=== PATIENT | female | born 1965 | race Caucasian/White ===

== ENCOUNTER 2016-04-07 15:28 | Emergency (ER) | payer BC, OTHER ==
[~2016-04-07] VITALS: Ht 167.6 cm; Wt 75.0 kg
[~2016-04-07 15:28] MED LIST: OXYC-360 PO; PEDI1CHW6 CHEW; ST J81CH PO; THYROSTIM PO; [UNRECOGNIZED DRUG - OTHER] PO; [UNRECOGNIZED DRUG - OTHER] PO
[2016-04-07 15:30] VITALS: BP 117/59; PULSE 78; RESP 20; TEMP 97.9; O2SAT 98
[2016-04-07] MEDS ORDERED: DILA100C PO (16:21)
--- NOTE | 2016-04-07 17:25 | RADRPT ---
EXAM DATE/TIME: 04/07/2016 17:00 [facility] COMPARISON: No previous studies available for comparison. INDICATIONS : Patient fell in the shower this morning. As she fell she hit her back and left side. MEDICAL HISTORY : None. SURGICAL HISTORY : None. ENCOUNTER: Initial ACUITY: 1 day PAIN SCORE: 9/10 LOCATION: Left Hip. FINDINGS: Examination of the left hip was performed with AP Pelvis. The primary and secondary trabecular patte rn of the femoral neck is intact. The hip joint is of normal width without significant sclerosis or bony hypertrophy. The acetabulum is grossly intact. CONCLUSION: Normal examination for a patient of this age. Julien Lowry MD on April 07, 2016 at 17:23 Board Certified Radiologist. This report was verified electronically.
--- NOTE | 2016-04-07 17:36 | PD ---
HPI Chief Complaint: Pain: Acute or Chronic Time Seen by Provider: 16:17 Travel History International Travel<30 days: No Contact w/Intl Traveler<30days: No Traveled to known affect area: No History of Present Illness HPI 50yo F with PMH of seizure disorder on dilantin presents to the ED with c/o syncope today. Pt was brushing her teeth in bathroom and thinks she may have slipped and fell but does not remember. She states she woke up on the floor and has left hip pain and pain in nose. Denies any headache, chest pain, sob, n /v, abdominal pain, focal weakness or numbness. Denies any seizure activity, incontinence, lip or tongue biting. PFSH Past Medical History Diminished Hearing: No Seizures: Yes Thyroid Disease: Yes (GOITER) Tetanus Vaccination: Unknown Influenza Vaccination: No ?: Not Past Surgical History Other Surgery: Yes (ADNOID SURGERY) Social History Alcohol Use: Yes (OCCASIONAL) Tobacco Use: No Substance Use: No Allergies-Medications (Allergen,Severity, Reaction): Coded Allergies: Shellfish (Verified Allergy, Severe, 09/23/08) Reported Meds & Prescriptions Reported Meds & Active Scripts Active Reported Dilantin (Phenytoin Extended) 100 Mg Cap 250 Mg PO DAILY Review of Systems Except as stated in HPI: all other systems reviewed are Neg Physical Exam Narrative GENERAL: 50yo F not in distress. SKIN: Warm and dry. HEAD: Atraumatic. Normocephalic. EYES: Pupils equal and round at 3mm bilaterally. EOMI. ENT: +Ecchymoses bridge of nose. +Dried blood in right nostril. No septal hematoma. No hemotympanum. NECK: No midline ttp cervical spine. CARDIOVASCULAR: Regular rate and rhythm. No murmur appreciated. RESPIRATORY: No accessory muscle use. Clear to auscultation. Breath sounds equal bilaterally. GASTROINTESTINAL: Abdomen soft, non-tender, nondistended. No rebound tenderness or guarding. MUSCULOSKELETAL: No obvious deformities. No clubbing. No cyanosis. No edema. NEUROLOGICAL: Awake and alert. No obvious cranial nerve deficits. Motor grossly within normal limits. Normal speech. PSYCHIATRIC: Appropriate mood and affect; insight and judgment normal. Data Data Last Documented VS Vital Signs Date Time Temp Pulse Resp B/P Pulse Ox O2 Delivery O2 Flow Rate FiO2 04/07/16 16:22 16 04/07/16 15:30 97.9 78 117/[address] Brain W/O Iv Contrast(Rout) (04/07/16 ) Ct Facial Bones W/O Iv Cont (04/07/16 ) Hip, Uni(Ap&Lat) W Ap Pelvis (04/07/16 ) Electrocardiogram (04/07/16 ) MDM Medical Decision Making Medical Screen Exam Complete: Yes Emergency Medical Condition: Yes Interpretation(s) EKG: NSR 73bpm. Normal axis. No ST segment elevation or depression. Vital Signs Date Time Temp Pulse Resp B/P Pulse Ox O2 Delivery O2 Flow Rate FiO2 04/07/16 16:22 16 04/07/16 15:30 97.9 78 20 117/59 98 Room Air Last Impressions Maxillofacial CT 04/07/16 0000 Signed Impressions: Service Date/Time: Thursday, April 07, 2016 17:16 - CONCLUSION: 1. Nasal bone fractures. 2. Multinodular enlargement of the thyroid. Julien Lowry MD Hip and Pelvis X-Ray 04/07/16 0000 Signed Impressions: Service Date/Time: Thursday, April 07, 2016 17:00 - CONCLUSION: Normal examination for a patient of this age. Julien Lowry MD Head CT 04/07/16 0000 Signed Impressions: Service Date/Time: Thursday, April 07, 2016 17:16 - CONCLUSION: 1. No acute findings.No significant change has occurred. Julien Lowry MD Differential Diagnosis Vasovagal syncope vs. orthostatic hypotension vs. ICH vs. seizure vs. fracture Narrative Course 50yo F with left hip pain and nasal bone pain s/p fall today. Thinks she slip and fell in bathroom but unsure. CT brain negative. CT facial showed: nasal bone fractures. Multinodular enlargement of thyroid. Pt states she knows about them. Xray left hip and pelvis normal. Pt states she has a oralfacial surgeon that specializes in cosmetics that she will follow up with. I will still place plastic referral if she wants to contact him instead. Return precautions given. Diagnosis Primary Impression: Nasal bone fractures Qualified Code: S02.2XXA - Closed fracture of nasal bone, initial encounter Patient Instructions: General Instructions Departure Forms: Tests/Procedures Additional Instructions: Please follow up with cosmetic surgeon or plastic or ENT for repair of nasal bone fractures if needed in 2-3 days. Return to the ED if symptoms worsen. Med/Other Pt SpecificInfo: Prescription(s) given Scripts Acetaminophen (Acetaminophen Extra Strength)500 Mg Qtf590 Mg PO Q6H PRN (PAIN SCALE 1 TO 4) #20 TAB Ref 0 Prov:Fany Khalil DO 04/07/16 Disposition: 01 DISCHARGE HOME Condition: Stable Fany Khalil DO Apr 07, 2016 17:36
--- NOTE | 2016-04-07 17:44 | RADRPT ---
EXAM DATE/TIME: 04/07/2016 17:16 [facility] COMPARISON: No previous studies available for comparison. INDICATIONS : Slip and fall today; head and facial pain. RADIATION DOSE: 49.50 CTDIvol (mGy) MEDICAL HISTORY : Seizures. SURGICAL HISTORY : Adenoid surgery. ENCOUNTER: Initial ACUITY: 1 day PAIN SCORE: 6/10 LOCATION: facial TECHNIQUE: Volumetric scanning of the facial bones was performed. Using automated exposure control and adjustme nt of the mA and/or kV according to patient size, radiation dose was kept as low as reasonably achiev able to obtain optimal diagnostic quality images. FINDINGS: Nasal bone fractures noted bilaterally, mildly displaced to the right. No other facial bone fractures . Incidentally made of marked enlargement of the thyroid gland with multiple nodules. CONCLUSION: 1. Nasal bone fractures. 2. Multinodular enlargement of the thyroid. Julien Lowry MD on April 07, 2016 at 17:41 Board Certified Radiologist. This report was verified electronically.
--- NOTE | 2016-04-07 17:45 | RADRPT ---
EXAM DATE/TIME: 04/07/2016 17:16 [facility] COMPARISON: CT BRAIN W/O CONTRAST, September 14, 2014, 18:19. INDICATIONS : Slip and fall today; head and facial pain. RADIATION DOSE: 40.77 CTDIvol (mGy) MEDICAL HISTORY : Seizures. SURGICAL HISTORY : Adenoid surgery. ENCOUNTER: Initial ACUITY: 1 day PAIN SCALE: 3/10 LOCATION: cranial TECHNIQUE: Multiple contiguous axial images were obtained of the head. Using automated exposure control and adj ustment of the mA and/or kV according to patient size, radiation dose was kept as low as reasonably a chievable to obtain optimal diagnostic quality images. FINDINGS: CEREBRUM: The ventricles are normal for age. No evidence of midline shift, mass lesion, hemorrhage or acute in farction. No extra-axial fluid collections are seen. POSTERIOR FOSSA: The cerebellum and brainstem are intact. The 4th ventricle is midline. The cerebellopontine angle i s unremarkable. EXTRACRANIAL: The visualized portion of the orbits is intact. SKULL: The calvaria is intact. No evidence of skull fracture. CONCLUSION: 1. No acute findings.No significant change has occurred. Julien Lowry MD on April 07, 2016 at 17:43 Board Certified Radiologist. This report was verified electronically.
[2016-04-07] MEDS ORDERED: ACET500T36 PO (18:14)
--- NOTE | 2016-04-08 12:59 | EKG ---
Date Performed: 04/07/2016 Time Performed: 17:45:49 PTAGE: 50 years EKG: Sinus rhythm Compared to prior tracing no significant change NORMAL ECG PREVIOUS TRACING : 09/14/2014 16.51 DOCTOR: Pernell Almonte Interpretating Date/Time 04/08/2016 12:55:23
== END 2016-04-07 18:32 | disposition home or self-care (01) ==
LOC: NEPA 15:28
DX: S02.2XXA Fracture of nasal bones, initial encounter for closed fracture (principal); R56.9 Unspecified convulsions; W01.0XXA Fall on same level from slipping, tripping and stumbling without subsequent striking against object, initial encounter; Y93.9 Activity, unspecified; Y92.89 Other specified places as the place of occurrence of the external cause; Y99.8 Other external cause status
CPT/HCPCS: 70450; 70486; 73502; 93005